=== PATIENT | male | born 1990 | race American Indian/Alaskan Native ===

== ENCOUNTER 2017-05-15 19:05 | Emergency (ER) | payer OTHER ==
[2017-05-15 19:14] VITALS: BP 134/78; PULSE 93; RESP 17; TEMP 98.1; O2SAT 96
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
== END 2017-05-15 19:47 | disposition home or self-care (01) ==
LOC: ED 19:05
DX: M25.561 Pain in right knee (principal)
CPT/HCPCS: 96372; 99283; J1885